=== PATIENT | female | born 2000 | race Native Hawaiian/Other Pacific Islander ===

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

== ENCOUNTER 2018-01-22 21:28 | Emergency (ER) | payer OTHER ==
[~2018-01-22] VITALS: Ht 152.4 cm; Wt 69.4 kg
[2018-01-22 22:45] LABS: PLATELET COUNT 536 K/uL (152-353)
[2018-01-22 23:15] VITALS: BP 118/70; TEMP 99.8
== END 2018-01-22 23:16 | disposition home or self-care (01) ==
LOC: ED 21:28
DX: N23 Unspecified renal colic (principal); N20.1 Calculus of ureter
CPT/HCPCS: 36415; 80053; 81000; 85027; 87077; 87086; 87088; 87186; 96365; 96374; 96375; 99284; J1885; J2550

== ENCOUNTER 2018-02-19 11:25 | Outpatient (CLI) | payer OTHER | END 2018-02-19 11:43 | disposition short-term general hospital (02) | LOC: AMB 11:25 | DX: N93.8 Other specified abnormal uterine and vaginal bleeding (principal) | CPT/HCPCS: A0425; A0429 ==

== ENCOUNTER 2018-11-03 21:00 | Emergency (ER) | payer OTHER ==
[~2018-11-03] VITALS: Ht 152.4 cm; Wt 77.1 kg
[2018-11-03 21:09] VITALS: BP 139/67; TEMP 98.2
== END 2018-11-03 21:30 | disposition home or self-care (01) ==
LOC: ED 21:00
DX: T63.441A Toxic effect of venom of bees, accidental (unintentional), initial encounter (principal); R20.0 Anesthesia of skin; Y92.512 Supermarket, store or market as the place of occurrence of the external cause
CPT/HCPCS: 99281